=== PATIENT | female | born 1990 | race Caucasian/White ===

== ENCOUNTER 2017-10-02 14:47 | Emergency (ER) | payer MEDICAID, OTHER ==
[~2017-10-02] VITALS: Ht 160 cm; Wt 58.7 kg
[~2017-10-02 14:47] MED LIST: AMIT25TA28 PO; ZONI100C5 PO
[2017-10-02 15:13] VITALS: BP 104/69
--- NOTE | 2017-10-02 16:36 | NUR ---
PT CALLED AT THE LOBBY NO ANSWER, LWBS
== END 2017-10-02 16:36 | disposition left against medical advice (07) ==
LOC: MED 14:47
DX: R10.9 Unspecified abdominal pain (principal); Z53.21 Procedure and treatment not carried out due to patient leaving prior to being seen by health care provider

== ENCOUNTER 2018-01-01 11:54 | Day surgery (SDC) | payer OTHER ==
[~2018-01-01] VITALS: Ht 160 cm; Wt 59.0 kg
[2018-01-01 11:56] VITALS: BP 119/75
--- NOTE | 2018-01-01 12:05 | NUR ---
PATIENT AMBULATED TO BED 1.
--- NOTE | 2018-01-01 12:05 | NUR ---
27 YO F BIB SELF W/ C/O N/V AND ABD PAIN 9/10 X 1 WEEK R/T MISCARRIAGE. PT REPORTS SHE WENT [facility] SHE FOUND OUT SHE WAS BECAUSE OF HER HX W/ ENDOMETRIOSIS. PER PT, PP TOLD HER SHE WOULD NOT BE ABLE TO CARRY THE CHILD AND HER "BEST BET" WAS TO ABORT THE CHILD. SHE WAS GIVEN A PILL TO TAKE AT HOME AND WAS TOLD SHE WOULD EXPEL THE LAST SATURDAY. PT REPORTS SHE HAD CRAMPING AT FIRST AND BLEEDING EXPECTED, BUT SHE STATES THE BLEEDING HAS GOTTEN "HEAVIER AND HEAVIER" AND NOW HER ABD PAIN IS SO SEVERE, ACCOMPANIED BY N/V X 1 WEEK. PT HAS NOT BEEN ABLE TO EAT OR DRINK ANYTHING IN 1 WEEK. PT LIPS ARE CRACKED AND DRY. PT IS CRYING IN GURNEY SHE VOMITS. ABD SOFT, NON-TENDER. RR EVEN AND UNLABORED. LUNG SOUNDS BILAT CLEAR. GCS 15. CMS INTACT. A&O X 4. AMBULATORY W/ STEADY GAIT. ER MD MCRAE NOTIFIED. SAFETY PRECAUTIONS IN PLACE. PT NEEDS MET AT THIS TIME. WILL CONTINUE TO MONITOR.
--- NOTE | 2018-01-01 13:14 | NUR ---
ER MD MCRAE AT BEDSIDE AT THIS TIME. WILL CONTINUE TO MONITOR.
[2018-01-01] MEDS ORDERED: MORPHINE SULFATE 4 MG/ML SYR IVP ONE ×2 (13:20→14:50)
[2018-01-01] MEDS ORDERED: ONDANSETRON 4 MG/2 ML VIAL IVP ONE ×2 (13:20→14:50)
--- NOTE | 2018-01-01 13:40 | NUR ---
LAB AT BEDSIDE
[2018-01-01 14:07] LABS: BASOPHILS % (AUTO) 0.3 % (0.0-2.0); EOSINOPHILS % (AUTO) 0.2 % (0.0-4.0); HEMATOCRIT 31.9 % (36-48); HEMOGLOBIN 10.6 g/dL (12.0-16.0); LYMPHOCYTES # (AUTO) 1.9 K/uL (2.5-16.5); LYMPHOCYTES % (AUTO) 21.7 % (20.5-51.1); MEAN CORPUSCULAR HEMOGLOBIN 30 pg (27-31); MEAN CORPUSCULAR HGB CONC 33 g/dL (33-37); MEAN CORPUSCULAR VOLUME 89.8 fL (80-94); MONOCYTES # (AUTO) 0.4 K/uL (0.8-1.0); NEUTROPHILS # (AUTO) 6.3 K/uL (1.8-7.7); NEUTROPHILS % (AUTO) 72.8 % (42.2-75.2); PLATELET COUNT (AUTO) 378 K/uL (140-450); RED BLOOD CELL COUNT(AUTO) 3.55 MIL/uL (4.20-5.40); RED CELL DISTRIBUTION WIDTH 13.6 % (11.6-13.7); WHITE BLOOD COUNT (AUTO) 8.6 K/uL (4.8-10.8)
[2018-01-01 14:21] LABS: PROTHROMBIN TIME 10.9 secs (10.8-13.4)
[2018-01-01 15:14] LABS: ALBUMIN 4.1 g/dL (3.4-5.0); TOTAL BILIRUBIN 0.4 mg/dL (0.0-1.0)
[2018-01-01 15:15] VITALS: BP 123/81
[2018-01-01 15:15] LABS: ANION GAP 15.4 (8-16); CARBON DIOXIDE 25.6 mmol/L (21-32); CREATININE 0.7 mg/dL (0.6-1.3)
--- NOTE | 2018-01-01 15:15 | NUR ---
Pt report given to OR Staff. Pt going to OR for D&C at 1515. Pt transferred to OR via [place] accompanied by 2x CNI RN Students, and OR, RN. Pt VSS. Pt tolerated transition well.
[2018-01-01 15:20] LABS: APPEARANCE,URINE HAZY (CLEAR); BLOOD, URINE 3+ (NEGATIVE); COLOR,URINE YELLOW (YELLOW); LEUKOCYTE ESTERASE ,URINE TRACE (NEGATIVE); NITRITE, URINE NEGATIVE (NEGATIVE); PH,URINE 6.5 (5.0-9.0); UGLUCOSE NEGATIVE (NEGATIVE)
[2018-01-01 15:30] LABS: BILIRUBIN,URINE NEGATIVE (NEGATIVE)
[2018-01-01 15:33] LABS: RBC,URINE >100 /HPF (0-5); WBC,URINE 6-15 (FEW) /HPF (0-5)
[2018-01-01] MEDS ORDERED: PROPOFOL 200 MG/20 ML VIAL IV ONE (15:50)
[2018-01-01] MEDS ORDERED: MIDAZOLAM 2 MG/2 ML VIAL ONE (15:57)
[2018-01-01] MEDS ORDERED: fentaNYL 0.05 MG/ML VIAL ONE (15:58)
[2018-01-01] MEDS ORDERED: MEPERIDINE 25 MG/ML SYR ONE ×3 (15:58→17:08)
[2018-01-01] MEDS ORDERED: MORPHINE SULFATE 4 MG/ML SYR IM/IVP PRN (16:05)
[2018-01-01] MEDS ORDERED: ONDANSETRON 4 MG/2 ML VIAL IVP PRN ×2 (16:05→16:30)
[2018-01-01] MEDS ORDERED: IBUPROFEN 800 MG TAB PO PRN (16:05)
[2018-01-01] MEDS ORDERED: ACETAMINOPHEN/CODEINE 300/30MG 1 TAB PO PRN (16:05)
[2018-01-01] MEDS ORDERED: diphenhydrAMINE 50 MG/ML VIAL IVP PRN (16:30)
[2018-01-01] MEDS ORDERED: MEPERIDINE 25 MG/ML SYR IVP PRN (16:30)
[2018-01-01] MEDS ORDERED: ONDANSETRON 4 MG/2 ML VIAL ONE (16:52)
--- NOTE | 2018-01-01 17:28 | NUR ---
PATIENT ARRIVED BY BED ACCOMPANIED BY O.R. NURSE. PATIENT IS ALERT AND ORIENTED X4. PATIENT'S SIGNIFICANT OTHER AT BEDSIDE. O.R. NURSE MEDICATED PATIENT FOR PAIN WITH DEMEROL 50 MG THIRTY MINUTES AGO. PATIENT VITAL SIGNS ARE STABLE AT 98.1, 101/54, 83 HR, AND 98% O2 SATURATION ON ROOM AIR. PATIENT HAS MINIMAL BLEEDING NOTED AT THIS TIME ON PAD. PATIENT DOES NOT COMPLAIN OF PAIN AT THIS TIME AND NO NAUSEA OR VOMITING NOTED. NO RESPIRATORY DISTRESS OR RESPIRATORY DEPRESSION NOTED. WILL CONTINUE TO MONITOR PATIENT.
--- NOTE | 2018-01-01 17:33 | NUR ---
PATIENT ABLE TO AMBULATE TO RESTROOM AND URINATE AT THIS TIME. WILL CONTINUE TO MONITOR PATIENT.
--- NOTE | 2018-01-01 17:53 | NUR ---
TALKED TO DR. Anabel COHEN. SAID THAT THERE ARE DISCHARGE ORDERS FOR THIS PATIENT ALREADY. HE SAID TO DISCHARGE PATIENT WHEN SHE IS STABLE. PATIENT NEEDS TO FOLLOW UP WITH IN 1 WEEK. WILL RELAY INFORMATION TO PATIENT.
--- NOTE | 2018-01-01 19:25 | NUR ---
REMOVED IV FROM PATIENT WITH CATHETER INTACT. REMOVED ID BANDS. PATIENT SIGNED INSTRUCTIONS AND UNDERSTOOD TEACHINGS. PATIENT LEFT WITH DISCHARGE INSTRUCTIONS BY ACCIDENT. PATIENT LEFT WITH ALL BELONGINGS IN STABLE CONDITION.
== END 2018-01-01 19:25 | disposition home or self-care (01) ==
LOC: MED 11:54 → MMU 15:02 → MDS 15:02 → MMU 15:02 → UNDOADMIN 15:02 → MMU 15:15 → MDS 19:25 → UNDODISIN 19:25
PROVIDERS: ATTEND Obstetrics & Gynecology
DX: O03.4 Incomplete spontaneous abortion without complication (principal); G40.909 Epilepsy, unspecified, not intractable, without status epilepticus; Z88.6 Allergy status to analgesic agent; Z3A.01 Less than 8 weeks gestation of pregnancy
CPT/HCPCS: 36415; 59812; 76817; 80053; 81001; 84702; 85025; 85610; 85730; 86886; 86900; 86901; 87086; 96374; 96375; 96376; 99285; J2175; J2250; J2270; J2405; J2704; J3010; J7120; Q0092; 88305

== ENCOUNTER 2018-01-03 15:25 | Emergency (ER) | payer OTHER ==
[~2018-01-03] VITALS: Ht 160 cm; Wt 61.2 kg
[2018-01-03 15:36] VITALS: BP 150/74
--- NOTE | 2018-01-03 15:44 | NUR ---
patient ambulated to er bed 3
--- NOTE | 2018-01-03 16:00 | NUR ---
27f bib significant other with c/o 7/10 "sharp" constant pain to bl lower abd s/p d/c done here by Eugene ROLAND on 01/01/18. Patient sts she wants a prescription for pain medication due to post surgical pain. Pt is aox4. gcs=15. Skin warm/dry/color appriopriate for ethnicity. No acute distress noted. Awaiting er md townsend. Will continue to onitor.
--- NOTE | 2018-01-03 16:33 | NUR ---
Patient discharged with v/s stable. Written and verbal after care instructions given and explained. Patient alert, oriented and verbalized understanding of instructions. Ambulatory with steady gait. All questions addressed prior to discharge. ID band removed. Patient advised to follow up with PMD. Rx of Zofran and NOrco 5 given. Patient educated on indication of medication including possible reaction and side effects. Opportunity to ask questions provided and answered.
[2018-01-03 16:34] VITALS: BP 150/74
== END 2018-01-03 16:32 | disposition home or self-care (01) ==
LOC: MED 15:25
DX: R10.30 Lower abdominal pain, unspecified (principal); R11.2 Nausea with vomiting, unspecified; N93.9 Abnormal uterine and vaginal bleeding, unspecified; Z88.8 Allergy status to other drugs, medicaments and biological substances; Z79.899 Other long term (current) drug therapy
CPT/HCPCS: 99283

== ENCOUNTER 2018-01-24 04:25 | Emergency (ER) | payer OTHER ==
[~2018-01-24] VITALS: Ht 160 cm; Wt 61.2 kg
[2018-01-24 04:31] VITALS: BP 149/91
--- NOTE | 2018-01-24 04:36 | NUR ---
PT AMBULATED TO ER BED 10
--- NOTE | 2018-01-24 04:40 | NUR ---
PATIENT IS A 27 Y/O FEMALE WHO PRESENTS TO THE ED C/O SEIZURES. PT STATES THAT SHE WAS SLEEPING IN BED WHEN SHE HAD A SEIZURE THAT LASTED APPROX X1 MINUTE. PT REPORTS FALLING ON HER LEFT EYE. PT REPORTS 10/10 ACHING LEFT EYE PAIN THAT DOES NOT RADIATE. PT DENIES CP, SOB, N/V/D. NO DEFORMITY TO TRAUMA TO LEFT EYE. PT AAOX4, RR EVEN/UNLABORED. PT REPOSITIONED FOR COMFORT, BED IN LOWEST POSITION. COELTTE KLEIN NOTIFIED. WILL CONTINUE TO MONITOR. Addendum: 01/24/18 at 0530 by MEDDCV PATIENT IS A 27 Y/O FEMALE WHO PRESENTS TO THE ED C/O SEIZURES. PT STATES THAT SHE WAS SLEEPING IN BED WHEN SHE HAD A SEIZURE THAT LASTED APPROX X1 MINUTE. PT REPORTS FALLING ON HER LEFT EYE. PT REPORTS 10/10 ACHING LEFT EYE PAIN THAT DOES NOT RADIATE. NOTED MILD REDNESS TO LEFT EYE. PT DENIES CP, SOB, N/V/D. NO DEFORMITY TO TRAUMA TO LEFT EYE. PT AAOX4, RR EVEN/UNLABORED. PT REPOSITIONED FOR COMFORT, BED IN LOWEST POSITION. COLETTE KLEIN NOTIFIED. WILL CONTINUE TO MONITOR.
[2018-01-24] MEDS ORDERED: LORazepam 1 MG TAB PO ONE ×2 (05:15→06:25)
[2018-01-24] MEDS ORDERED: HYDROcodone/APAP 5/325 MG 1 TAB TAB PO ONE ×2 (05:15→08:45)
--- NOTE | 2018-01-24 05:45 | NUR ---
PATIENT TO CT VIA GURNEY.
--- NOTE | 2018-01-24 05:57 | NUR ---
PATIENT RETURN FROM CT.
--- NOTE | 2018-01-24 06:10 | NUR ---
PATIENT RESTING AT THIS TIME. NO SIGNS OF DISTRESS.
--- NOTE | 2018-01-24 06:30 | NUR ---
PATIENT GIVEN ICE PACK.
--- NOTE | 2018-01-24 07:00 | NUR ---
Pt report given to AMELIE DANG. Transfer of care at this time.
--- NOTE | 2018-01-24 07:10 | NUR ---
PT. VERBALIZES " I HAD A SEIZURE AND FELL OUT OF BED AND HIT MY L EYE ON THE CORNER OF SOMETHING AND IT JUST REALLY HURTS AND IT FEELS LIKE I CANT BREATHE OUT OF MY NOSE". UPON ASSESSMENT PT HAS L EYE SWOLLEN AND PT STATES " MY VISION IS BETTER BUT I SEE A LITTLE DOUBLE VISION RIGHT NOW". PT. AAOX4. BOYFRIEND AT BEDSIDE.
[2018-01-24 08:53] VITALS: BP 121/83
--- NOTE | 2018-01-24 08:53 | NUR ---
Patient discharged with v/s stable. Written and verbal after care instructions given and explained. Patient alert, oriented and verbalized understanding of instructions. Ambulatory with steady gait. All questions addressed prior to discharge. ID band removed. Patient advised to follow up with PMD. Rx of AUGMENTIN AND NORCO 5/325 given. Patient educated on indication of medication including possible reaction and side effects. Opportunity to ask questions provided and answered.
== END 2018-01-24 08:53 | disposition home or self-care (01) ==
LOC: MED 04:25
DX: G40.89 Other seizures (principal); R11.2 Nausea with vomiting, unspecified; K21.9 Gastro-esophageal reflux disease without esophagitis; Z79.899 Other long term (current) drug therapy; Z88.8 Allergy status to other drugs, medicaments and biological substances
CPT/HCPCS: 70450; 81002; 81025; 99284